=== PATIENT | female | born 1995 | race Caucasian/White ===

== ENCOUNTER 2016-09-18 09:29 | Emergency (ER) | payer BC ==
[2016-09-18] MEDS ORDERED: AMOXICILLIN 500MG CAPSULE PO ONE (09:39)
--- NOTE | 2016-09-18 09:45 | Emergency Department Record ---
History of Present Illness - General Chief complaint: ENT Stated complaint: SORE THROAT Time Seen by Provider: 09/18/16 09:39 Source: Patient Mode of Arrival: Ambulatory Limitations: No limitations - History of Present Illness Initial comments: 21 yo female presents with sore throat and ear pain for 2 days. She has noticed swollen glands as well. No fevers. No NVD. No rash. No known sick exposures. She is eating and drinking. No voice changes. MD complaint: Ear pain, Sore throat Onset/Timin -: Days(s) Location: Throat Severity: Moderate Severity scale (1-10): 7 Quality: Burning Consistency: Constant Improves with: None Worsens with: Swallowing Associated Symptoms: Sore throat - Related Data Previous Rx's Medication Instructions Recorded Amoxicillin 500Mg Capsule [Amoxil] 500 mg PO TID #21 tab 09/18/16 Allergies Allergy/AdvReac Type Severity Reaction Status Date / Time No Known Drug Allergies Allergy Verified 09/18/16 09:34 Travel Screening - Travel/Exposure Within Last 30 Days Have you traveled within the last 30 days?: No Review of Systems Constitutional: Denies: Chills, Fever, Weakness Eyes: Denies: Eye discharge ENT: Reports: Ear pain (right sided), Throat pain. Denies: Congestion, Epistaxis Respiratory: Denies: Cough, Hemoptysis, Wheezes Cardiovascular: Denies: Chest pain, Palpitations, Syncope Endocrine: Denies: Fatigue Gastrointestinal: Denies: Abdominal pain, Diarrhea, Nausea, Vomiting Genitourinary: Denies: Dysuria, Urgency Musculoskeletal: Denies: Arthralgia, Back pain, Myalgia, Neck pain Skin: Denies: Bruising, Change in color, Rash Neurological: Denies: Headache, Numbness, Weakness Psychiatric: Denies: Anxiety Hematological/Lymphatic: Reports: Swollen glands. Denies: Easy bleeding, Easy bruising Past Medical History - SOCIAL HISTORY Smoking Status: Current every day smoker Alcohol Use: Occassional Drug Use: None - RESPIRATORY Hx Respiratory Disorders: No - CARDIOVASCULAR Hx Cardio Disorders: No - NEURO Hx Neuro Disorders: No - GI Hx GI Disorders: No - Hx Genitourinary Disorders: No - ENDOCRINE Hx Endocrine Disorders: No - MUSCULOSKELETAL Hx Musculoskeletal Disorders: No - PSYCH Hx Psych Problems: No - HEMATOLOGY/ONCOLOGY Hx Hematology/Oncology Disorders: Yes Hx Anemia: Yes Family Medical History Any Significant Family History?: No Physical Exam - General General Appearance: Alert, Oriented x3, Cooperative, No acute distress Limitations: No limitations - Head Head exam: Normal inspection - Eye Eye exam: Normal appearance. negative: Conjunctival injection, Periorbital swelling - ENT ENT exam: Normal exam, Mucous membranes moist, Normal external ear exam, TM's normal bilaterally. negative: Mucous membranes dry, Normal orophraynx Ear exam: Normal external inspection. negative: External canal tenderness Nasal Exam: Normal inspection. negative: Discharge, Sinus tenderness Mouth exam: Normal external inspection, Tongue normal Teeth exam: Normal inspection. negative: Dental caries Throat exam: Tonsillar erythema, Tonsillomegaly, Tonsillar exudate, Other (no abscess, wide open posterior pharynx). negative: Normal inspection, R peritonsillar mass, L peritonsillar mass - Neck Neck exam: Normal inspection, Full ROM, Lymphadenopathy (mild bilateral small mobile LN, no posterior). negative: Meningismus - Respiratory Respiratory exam: Normal lung sounds bilaterally. negative: Respiratory distress - Cardiovascular Cardiovascular Exam: Regular rate, Normal rhythm, Normal heart sounds - Rectal Rectal exam: Deferred - exam: Deferred - Back Back exam: Reports: Normal inspection - Neurological Neurological exam: Alert, Normal gait, Oriented X3. negative: Altered - Psychiatric Psychiatric exam: Normal affect, Normal mood - Skin Skin exam: Dry, Intact, Normal color, Warm Course Vital Signs 09/18/16 09:31 Temperature 98.6 F Pulse Rate 89 Respiratory 18 Rate Blood Pressure 131/76 Pulse Ox 95 - Reevaluation(s) Reevaluation #1: The patient was seen and examined She is well appearing. Examination is consistence with tonsillitis without complications Strep screen sent. Amoxicillin provided 09/18/16 09:42 Disposition Disposition: Discharge Clinical Impression: Acute bacterial tonsillitis Disposition: Home, Self-Care Condition: (1) Good Instructions: Tonsillitis (ED) Additional Instructions: Stay well hydrated Tylenol or Motrin for discomfort Amoxicillin 3 times daily for one week Prescriptions: Amoxicillin 500Mg Capsule [Amoxil] 500 mg PO TID #21 tab Forms: Patient Portal Access Time of Disposition: 09:45
== END 2016-09-18 10:10 | disposition home or self-care (01) ==
LOC: ER 09:29
DX: J03.80 Acute tonsillitis due to other specified organisms (principal); B96.89 Other specified bacterial agents as the cause of diseases classified elsewhere
CPT/HCPCS: 87880; 99282